=== PATIENT | male | born 1955 | race Caucasian/White ===

== ENCOUNTER 2016-04-17 09:57 | Emergency (ER) | payer MEDICARE ==
[2016-04-17 11:03] LABS: ABSOLUTE NEUTROPHIL COUNT 2.1 K/mm3 (1.8-7.7); BASO % 0.4 % (0.2-1.0); EOS # 0.9 (0.0-0.5); EOS % 13.4 % (0.9-2.9); HEMATOCRIT 21.9 % (32.0-52.0); HEMOGLOBIN 7.1 gm/l (14.0-18.0); IMM NEUT # 1.6 K/mm3 (0-0.2); IMM NEUT% 23.3 % (0-1); LYMPH # 1.4 (1.0-4.8); LYMPH % 20.7 % (15-45); MEAN CELL VOLUME 82.3 fl (80.0-94.0); MEAN CORPUSCULAR HEMOGLOBIN 26.7 pg (27.0-31.0); MEAN CORPUSCULAR HGB CONC 32.4 g/dl (33.0-37.0); MONO # 0.8 (0.0-0.8); MONO % 11.8 % (4-12); NEUT % 30.4 % (43-75); PLATELET COUNT 30 K/mm3 (130-400); RED CELL DISTRIBUTION WIDTH 20.6 % (11.5-14.5)
[2016-04-17 11:09] LABS: ALB/GLOB RATIO 1.7 (>1.0); ALBUMIN 3.6 gm/dL (3.5-5.7); CALCIUM 8.4 mg/dL (8.6-10.3)
--- NOTE | 2016-04-17 11:23 | CT ---
ABD/PELVIS W/O CON COMPARISON: CT chest with contrast and CT abdomen and pelvis with contrast, 12/06/2015 HISTORY: Lung nodules. Renal mass. Ground level fall yesterday with right hip pain. Technique: Using a [employer] [address] scanner, images were obtained from the diaphragm to the floor the pelvis. No intravenous contrast. An automated dose reduction technique was used to minimize patient radiation dose. Dose: CTDIvol (mGy): 9.90 DLP(mGycm): 521.20 FINDINGS: Lung bases: Dependent atelectasis in both lung bases with fibrotic nodules and emphysema. Inferior mediastinum and heart: Normal Liver: Normal Gallbladder: Normal Bile ducts: Normal. Pancreas: Normal Spleen: No change. Mild splenomegaly. Adrenal glands: No change. Bilateral adrenal calcifications. Kidneys: Normal unenhanced right kidney. At the anterior surface of the upper pole of the left kidney, no change in 15.4 mm cyst. Ureters: Normal Urinary bladder: Normal Prostate gland and seminal vesicles: Normal Blood vessels: Severe atherosclerotic calcific plaquing of the aorta and its branches in the abdomen and the pelvis. No aneurysm. Lymph nodes: Normal Stomach: Normal Duodenum: Normal Small intestine: Normal Appendix: Normal Colon: Normal Abdominal wall and supporting musculature: Normal Bones: No acute finding. No fracture bone destruction. Degenerative changes at both hips and in the lumbar spine. IMPRESSION: 1. Mild osteoarthritis of both hips and multilevel spondylosis, most advanced at L5-S1, without change compared to 12/06/2015. No acute osseous finding. 2. In both lung bases, emphysema, fibrotic nodules, and dependent atelectasis. 3. Mild splenomegaly. 4. Bilateral chronic adrenal calcifications without associated mass. 5. 15.4 mm cyst, anterior surface upper pole left kidney. 6. Severe atherosclerosis of the aorta and its branches in the abdomen and pelvis. Report was sent to the emergency department [facility] medical record system 04/17/2016 at 11:25.
[2016-04-17 12:09] LABS: ANISOCYTOSIS 3+; BAND 15 % (0-10); BASOPHIL 0 % (0-1); EOSINOPHIL 9 % (1-3); HYPOCHROMIA 2+; LYMPHOCYTE 42 % (15-45); MONOCYTE 10 % (4-12); NEUTROPHILS 22 % (43-75); OVALOCYTES 2+; PLATELET ESTIMATE DECREASED (NORMAL); POIKILOCYTOSIS 3+; TEAR DROP CELLS 2+; TOTAL CELLS COUNTED 100
[2016-04-17 12:10] LABS: ACANTHROCYTES 2+
[2016-04-17 12:15] LABS: SPECIFIC GRAVITY 1.015 (1.001-1.030); URINE BILIRUBIN NEGATIVE (NEGATIVE); URINE BLOOD NEGATIVE (NEGATIVE); URINE GLUCOSE (UA) NEGATIVE (NEGATIVE); URINE NITRITE NEGATIVE (NEGATIVE); URINE PROTEIN TRACE (NEGATIVE); URINE UROBILINOGEN NORMAL (0-1 mg/dl)
[2016-04-17 12:22] LABS: URINE LEUKOCYTE ESTERASE TRACE (NEGATIVE)
[2016-04-17 12:28] LABS: URINE APPEARANCE CLEAR; URINE COLOR YELLOW
[2016-04-17 12:36] LABS: URINE RBC 0 /hpf
[2016-04-17 12:37] LABS: URINE BACTERIA FEW; URINE EPITHELIAL CELLS FEW /hpf
[2016-04-17] MEDS ORDERED: HYDROCODONE/ACETAMINOPHEN 5/325MG TABLET ONE (13:30)
== END 2016-04-17 14:12 | disposition home or self-care (01) ==
LOC: ED 09:57
DX: S39.91XA Unspecified injury of abdomen, initial encounter (principal); M25.551 Pain in right hip; D64.9 Anemia, unspecified; G35 Multiple sclerosis; C85.90 Non-Hodgkin lymphoma, unspecified, unspecified site; F17.210 Nicotine dependence, cigarettes, uncomplicated; W19.XXXA Unspecified fall, initial encounter; Y92.9 Unspecified place or not applicable
CPT/HCPCS: 83605; 85025; 87040; 87086; 80053; 81001; 74176; 99284 ×2; 36591; A9270